=== PATIENT | female | born 1950 | race African-American/Black ===

== ENCOUNTER 2018-04-28 09:31 | Emergency (ER) | payer MEDICAID ==
[~2018-04-28] VITALS: Ht 177.8 cm; Wt 80.0 kg
[~2018-04-28 09:31] MED LIST: ATIVAN; GABAPENTIN; HYDR-1348; LOTREL; PRAVASTATIN; VIC PO
[2018-04-28] MEDS ORDERED: HYDR-4009 MT (09:50)
[2018-04-28] MEDS ORDERED: QUET50TA21 MT (09:50)
[2018-04-28] MEDS ORDERED: ASPI-1159 MT (09:50)
[2018-04-28] MEDS ORDERED: TRAZ-213 MT (09:50)
[2018-04-28] MEDS ORDERED: FLUO-124 MT (09:50)
[2018-04-28] MEDS ORDERED: FAMO20TA8 MT (09:50)
[2018-04-28] MEDS ORDERED: AMLO-78 PO (09:50)
[2018-04-28] MEDS ORDERED: CALC-787 MT (09:50)
[2018-04-28] MEDS ORDERED: MAGNESIUM/ALUMINUM HYDROXIDE/SIMETHICONE 30ML UDC PO STA (10:12)
[2018-04-28] MEDS ORDERED: VISCOUS LIDOCAINE 2% 15 ML UDC MM PRN (10:15)
[2018-04-28] MEDS ORDERED: DICYCLOMINE HCL 10MG CAPSULE PO ONE (10:15)
[2018-04-28 11:43] LABS: BASOPHILS % 0.5 % (0.0-2.0); EOSINOPHILS % 3.2 % (0.0-5.0); HEMATOCRIT. 39.3 % (36.0-48.0); HEMOGLOBIN. 13.2 g/dL (12.0-16.0); MEAN CORPUSCULAR HEMOGLOBIN 31.6 pg (28.0-32.0); MEAN CORPUSCULAR VOLUME 93.7 fL (81.0-99.0); MEAN PLATELET VOLUME 9.2 fl (7.4-10.4); NEUTROPHILS % 61.3 % (40.0-76.0); PLATELET 230 x1000/uL (130-400); RED CELL DISTRIBUTION WIDTH 14.1 % (11.6-14.6)
[2018-04-28 11:48] LABS: CHLORIDE 103 mEq/L (98-107)
[2018-04-28 13:40] VITALS: BP 133/68
== END 2018-04-28 13:42 | disposition home or self-care (01) ==
LOC: ER 10:03
DX: R10.13 Epigastric pain (principal)
CPT/HCPCS: 36415; 82962; 93005; 99284

== ENCOUNTER 2020-02-05 17:48 | Emergency (ER) | payer MEDICAID ==
[~2020-02-05] VITALS: Ht 177.8 cm; Wt 80.0 kg
[~2020-02-05 17:48] MED LIST changes: +AMLO-78 PO; +ASPI-1497 MT; -ATIVAN; +CALC-787 MT; +FAMO20TA8 MT; +FLUO20CA39 MT; -HYDR-1348; +HYDR-4009 MT; +QUET50TA21 MT; +TRAZ-252 MT; -VIC PO
[2020-02-05] MEDS ORDERED: HYDROCODONE/ACETAMINOPHEN 5/325MG TABLET PO ONE (19:45)
[2020-02-05 20:44] LABS: CLARITY URINE CLOUDY (CLEAR); COLOR URINE DARK YELLOW (YELLOW); KETONES URINE TRACE (NEGATIVE); LEUKOCYTE ESTERASE URINE 1+ (NEGATIVE); NITRITE URINE NEGATIVE (NEGATIVE); OCCULT BLOOD URINE NEGATIVE (NEGATIVE); PROTEIN URINE 1+ (NEGATIVE); SPECIFIC GRAVITY URINE 1.017 (1.005-1.030)
[2020-02-05 21:25] VITALS: BP 125/73
== END 2020-02-05 21:40 | disposition home or self-care (01) ==
LOC: ER 17:48
DX: N30.00 Acute cystitis without hematuria (principal); E78.00 Pure hypercholesterolemia, unspecified; I10 Essential (primary) hypertension; Z98.890 Other specified postprocedural states; Z79.899 Other long term (current) drug therapy
CPT/HCPCS: 81003; 99283

== ENCOUNTER 2021-04-27 16:01 | Emergency (ER) | payer MEDICAID ==
[~2021-04-27] VITALS: Ht 177.8 cm; Wt 79.0 kg
[~2021-04-27 16:01] MED LIST changes: -QUET50TA21 MT; +QUET50TA23 MT
[2021-04-27 16:03] VITALS: BP 134/75
[2021-04-27] MEDS ORDERED: TOPUD MT (16:13)
[2021-04-27] MEDS ORDERED: OFLO5DRO4 RIGHT EAR (16:13)
[2021-04-27] MEDS ORDERED: ACETAMINOPHEN 325MG TABLET PO ONE (16:30)
== END 2021-04-27 16:35 | disposition home or self-care (01) ==
LOC: ER 16:01
DX: H60.91 Unspecified otitis externa, right ear (principal); I10 Essential (primary) hypertension; E78.00 Pure hypercholesterolemia, unspecified
CPT/HCPCS: 99283

== ENCOUNTER 2021-05-10 15:33 | Emergency (ER) | payer MEDICAID ==
[~2021-05-10] VITALS: Ht 177.8 cm; Wt 79.0 kg
[~2021-05-10 15:33] MED LIST changes: +OFLO5DRO4 RIGHT EAR; +TOPUD MT
[2021-05-10] MEDS ORDERED: CEPH500T PO (17:15)
[2021-05-10] MEDS ORDERED: NEOM10DR11 RIGHT EAR (17:15)
[2021-05-10 18:42] VITALS: BP 159/77
== END 2021-05-10 18:43 | disposition home or self-care (01) ==
LOC: ER 15:33
DX: H60.91 Unspecified otitis externa, right ear (principal); H61.21 Impacted cerumen, right ear; H60.11 Cellulitis of right external ear; I10 Essential (primary) hypertension
CPT/HCPCS: 99283

== ENCOUNTER 2021-12-18 10:56 | Emergency (ER) | payer MEDICAID, OTHER ==
[~2021-12-18] VITALS: Ht 177.8 cm; Wt 80.0 kg
[~2021-12-18 10:56] MED LIST changes: +AMLO-139 PO; -AMLO-78 PO; +CEPH500T PO; +NEOM10DR11 RIGHT EAR
[2021-12-18 11:13] VITALS: BP 145/75
[2021-12-18] MEDS ORDERED: ACETAMINOPHEN 325MG TABLET PO ONE (12:45)
[2021-12-18] MEDS ORDERED: ACET-2708 MT ×2 (13:52)
[2021-12-19] MEDS ORDERED: ACET-2708 MT (12:04)
== END 2021-12-18 13:46 | disposition home or self-care (01) ==
LOC: ER 10:56
DX: S50.01XA Contusion of right elbow, initial encounter (principal); W22.8XXA Striking against or struck by other objects, initial encounter; R03.0 Elevated blood-pressure reading, without diagnosis of hypertension; Y93.89 Activity, other specified; Y92.89 Other specified places as the place of occurrence of the external cause
CPT/HCPCS: 73080; 99283